=== PATIENT | female | born 1995 | race Caucasian/White ===

== ENCOUNTER 2025-11-12 09:27 | Day surgery (SDC) | payer MEDICAID ==
[2025-11-12] MEDS ORDERED: Acetaminophen 500 MG TAB ONE (10:04)
[2025-11-12] MEDS: Acetaminophen 500 MG TAB PO SCH (10:05)
[2025-11-12] MEDS: Iron Sucrose Complex 500 MG in Sodium Chloride 0.9% 250 ML 250 ML IVPB SCH (10:33)
[2025-11-12 15:33] VITALS: BP 108/64; TEMP 98.4
== END 2025-11-12 15:33 | disposition home or self-care (01) ==
LOC: ONC/OP 09:27
PROVIDERS: ATTEND Family Medicine
DX: O99.019 Anemia complicating pregnancy, unspecified trimester (principal); Z3A.00 Weeks of gestation of pregnancy not specified
CPT/HCPCS: 96365; 96366; J1756; J7050